=== PATIENT | male | born 1940 | race Two or more races ===

== ENCOUNTER → 2020-03-25 | Outpatient (CLI) | payer MEDICARE | LOC: M LABSMTC 12:59 | PROVIDERS: ATTEND Pediatrics | DX: Z20.828 Contact with and (suspected) exposure to other viral communicable diseases (principal) ==

== ENCOUNTER → 2020-03-25 | Outpatient (CLI) | payer MEDICARE ==
--- NOTE | 2020-03-26 00:45 | REPVR ---
PROCEDURE INFORMATION: Exam: MR Head Without Contrast; Internal Auditory Canals Exam date and time: 03/25/2020 1:35 PM Age: 79 years old Clinical indication: Other: Hearing loss TECHNIQUE: Imaging protocol: MR of the head without contrast. Exam focused on the internal auditory canals. 3D rendering (Not supervised by radiologist): MIP and/or 3D reconstructed images were created by the technologist. COMPARISON: No relevant prior studies available. FINDINGS: Brain: No restricted diffusion within the brain to suggest an acute infarct. There are scattered foci of FLAIR hyperintensity within the cerebral white matter. There is no mass effect or restricted diffusion associated with these foci. In a patient this age, this likely represents chronic small vessel ischemic disease. Small T2 hyperintense chronic lacunar infarcts are identified within the cerebellum. There is a small focus of T2 hypointensity along the falx, likely representing calcification. A calcified meningioma is within the differential. This measures 1.1 x 0.4 cm. There is a small focus of T2 hyperintensity within the left thalamus, consistent with chronic ischemic change/chronic lacunar infarct. No cerebral edema. Ventricles: There is mild to moderate prominence of the sulci, with mild prominence of the ventricles, compatible with atrophy. Sinuses: Mild mucosal thickening of the left frontal sinus. Mucosal thickening/effusions within ethmoid air cells bilaterally. There is mucosal thickening of the right maxillary sinus. Mild mucosal thickening and minimal effusion within the left maxillary sinus. Mastoid air cells: No effusions. Internal auditory canals: There is no mass effect involving the internal auditory canals or cerebellopontine angle cisterns. Evaluation of the internal auditory canals is limited by the absence of intravenous contrast. Bones/joints: Advanced left TMJ arthropathy. IMPRESSION: 1. No restricted diffusion within the brain to suggest an acute infarct. 2. There are scattered foci of FLAIR hyperintensity within the cerebral white matter. In a patient this age, this likely represents chronic small vessel ischemic disease. 3. Mild to moderate atrophy. 4. Small chronic lacunar infarcts are identified within the cerebellum. 5. There is no mass effect involving the internal auditory canals or cerebellopontine angle cisterns. Evaluation of the internal auditory canals is limited by the absence of intravenous contrast. 6. Paranasal sinus disease. 7. Advanced left TMJ arthropathy. 8. Additional findings described above. Electronically signed by: Iggy Villasenor On 03/26/2020 00:45:39 AM
== END ==
LOC: M RAD 13:23
PROVIDERS: ATTEND Otolaryngology
DX: H90.3 Sensorineural hearing loss, bilateral (principal); I63.9 Cerebral infarction, unspecified; J32.9 Chronic sinusitis, unspecified; M26.69 Other specified disorders of temporomandibular joint